=== PATIENT | male | born 1935 ===

== ENCOUNTER 2019-04-12 06:19 | Inpatient (IN) ==
[2019-04-12 08:28] LABS: ABG HCO3 22.8 MMOL/L (20-26); ABG Oxygen Saturation 99.8 % (95-100); ABG PH 7.393 (7.35-7.45)
[2019-04-12] MEDS ORDERED: NOREPINEPHRINE 8 MG in SODIUM CHLORIDE 0.9% 242 ML IV PRN (08:28)
[2019-04-12 08:29] LABS: Allen Test Positive; Pt O2 Delivery Device Ventilator
[2019-04-12 09:15] LABS: Basophils % 0.1 % (0.0-0.8); Hematocrit 37.1 VOL% (42.0-52.0); Hemoglobin 11.8 GM/DL (14.0-18.0); Immature Granulocytes % 0.7 %; Immature Granulocytes Absolute 0.09 #; Lymphocytes # 0.3 10*3/uL (1.4-4.0); Lymphocytes % 2.4 % (21.2-54.2); Mean Corpuscular HGB Conc 31.8 GM/DL (32-36); Mean Corpuscular Volume 98.1 FL (87-102); Mean Platelet Volume 11.7 FL (9.6-12.0); Monocytes % 2.7 % (1.7-12.7); Neutrophils % 94.1 % (38.7-73.9); Platelet Count 153 T/CUMM (130-400); Red Blood Count 3.78 MC/CUMM (3.8-5.5); Red Cell Distribution Width 13.2 % (9.3-17.3); White Blood Count 13.5 T/CUMM (4-12)
[2019-04-12] MEDS ORDERED: SODIUM CHLORIDE 0.9% 1,800 ML IV ONE (09:15)
[2019-04-12 09:20] LABS: Amorphous Crystals,Urine Occasional /HPF (Few); Apearance,Urine CLOUDY (Clear); Bilirubin,Urine Negative (Negative); Blood, Urine Moderate mg/dL (Negative); Glucose,Urine (UA) Negative (Negative); Ketones,Urine Negative (Negative); Nitrite,Urine Negative (Negative); Protein,Urine 30 MG/DL; RBC,Urine 56 /HPF (0-4); Squamous Epithelial Cell,Urine Occasional /HPF (0-10); Urine Color Yellow (Yellow); Urine Specific Gravity 1.008 (1.001-1.035); Urine Urobilinogen < 2.0 EU/DL (0.2-1.0); WBC,Urine 1 /HPF (0-6)
[2019-04-12 09:40] LABS: Band Neutrophils 7 % (0-10); Lymphocytes 4 % (20-55); Segmented Neutrophils 87 % (50-85); Total Cells Counted 100
[2019-04-12 09:41] LABS: Hypochromasia 1+; Ovalocytes Slight; Platelet Estimate Adequate
[2019-04-12 09:42] LABS: Bilirubin,Total 0.8 MG/DL (0.2-1.0); Total Protein 6.4 G/DL (6.4-8.3)
[2019-04-12] MEDS: PIPERACILLIN/TAZOBACTAM 3,375 MG in SODIUM CHLORIDE 0.9% 100 ML IV SCH ×2 (10:22→17:29)
[2019-04-12] MEDS: POTASSIUM CHLORIDE RIDER 10 MEQ in PREMIX 1 EACH IV PRN ×7 (10:22→19:16)
[2019-04-12] MEDS ORDERED: ENOXAPARIN 40 MG/0.4 ML SYRINGE SUBCUT SCH (11:00)
[2019-04-12] MEDS ORDERED: ACETAMINOPHEN 325 MG TABLET PO PRN (11:11)
[2019-04-12] MEDS ORDERED: ALBUTEROL 2.5 MG/3 ML NEB RESP TX PRN (11:11)
[2019-04-12] MEDS ORDERED: ONDANSETRON 4 MG/2 ML VIAL IV PRN (11:11)
[2019-04-12] MEDS: PANTOPRAZOLE 40 MG VIAL IV SCH (12:53)
[2019-04-12] MEDS: INSULIN REGULAR 100 UNIT/ML SUBCUT SCH ×2 (12:54→18:02)
[2019-04-12] MEDS: OSELTAMIVIR 6 MG/ML 60 ML/BOTTLE PO SCH ×2 (12:54→21:30)
[2019-04-12] MEDS: SKIN HEALING OINT (AQUAPHOR) 50 GM TUBE TOP PRN (14:11)
[2019-04-12] MEDS ORDERED: DEXTROSE 10% 250 ML BAG IV PRN (14:50)
[2019-04-12] MEDS ORDERED: GLUCAGON 1 MG VIAL IM PRN (14:50)
[2019-04-12] MEDS ORDERED: FUROSEMIDE 40 MG/4 ML VIAL IV ONE (15:35)
[2019-04-13] MEDS: INSULIN REGULAR 100 UNIT/ML SUBCUT SCH ×4 (01:51→18:51)
[2019-04-13] MEDS: PIPERACILLIN/TAZOBACTAM 3,375 MG in SODIUM CHLORIDE 0.9% 100 ML IV SCH ×3 (01:52→18:41)
[2019-04-13 04:43] LABS: ABG Base Excess -3.8 MMOL/L (-2.5-2.5); ABG HCO3 21.3 MMOL/L (20-26); ABG Oxygen Saturation 99.2 % (95-100); ABG PCO2 39.6 MM HG (35-48); ABG PH 7.344 (7.35-7.45); ABG TCO2 19.3 MMOL/L (23-27); Allen Test Positive; Pt O2 Delivery Device Ventilator
[2019-04-13 05:11] LABS: Basophils % 0.1 % (0.0-0.8); Hematocrit 36.5 VOL% (42.0-52.0); Hemoglobin 11.6 GM/DL (14.0-18.0); Immature Granulocytes % 0.7 %; Lymphocytes # 1.2 10*3/uL (1.4-4.0); Lymphocytes % 8.6 % (21.2-54.2); Mean Corpuscular HGB Conc 31.8 GM/DL (32-36); Mean Corpuscular Volume 96.6 FL (87-102); Mean Platelet Volume 12.4 FL (9.6-12.0); Monocytes % 2.5 % (1.7-12.7); Neutrophils % 88.1 % (38.7-73.9); Platelet Count 125 T/CUMM (130-400); Red Blood Count 3.78 MC/CUMM (3.8-5.5); Red Cell Distribution Width 13.9 % (9.3-17.3); White Blood Count 13.9 T/CUMM (4-12)
[2019-04-13 05:32] LABS: Albumin 2.4 G/DL (3.4-5.0); Bilirubin,Total 0.8 MG/DL (0.2-1.0); Calcium 8.6 MG/DL (8.5-10.1); Osmolality,Calculated 276.4 MOS/KG (273-304); Risk Ratio 1.78; Total Protein 5.4 G/DL (6.4-8.3); VLDL CHOLESTEROL 27.6 MG/DL
[2019-04-13 05:44] LABS: Prealbumin 6.2 MG/DL (20-40)
[2019-04-13] MEDS ORDERED: MORPHINE 4 MG/1 ML VIAL IV PRN (08:33)
[2019-04-13] MEDS ORDERED: FUROSEMIDE 40 MG/4 ML VIAL IV SCH (09:00)
[2019-04-13] MEDS ORDERED: INFLUENZA VIRUS VACCINE 0.5 ML SYRINGE IM ONE (09:00)
[2019-04-13] MEDS: ENOXAPARIN 30 MG/0.3 ML SYRINGE SUBCUT SCH (11:30)
[2019-04-13] MEDS: FUROSEMIDE 40 MG/4 ML VIAL IV SCH ×2 (11:30→15:24)
[2019-04-13] MEDS: PANTOPRAZOLE 40 MG VIAL IV SCH (11:33)
[2019-04-13] MEDS ORDERED: PIPERACILLIN/TAZOBACTAM 3,375 MG in SODIUM CHLORIDE 0.9% 100 ML IV SCH (13:00)
[2019-04-13] MEDS: ALBUTEROL/IPRATROPIUM 3 ML NEB RESP TX SCH ×2 (13:05→19:46)
[2019-04-13] MEDS: POTASSIUM CHLORIDE 20 MEQ/15 ML UDCUP PO SCH (13:27)
[2019-04-13] MEDS: ASPIRIN EC 81 MG TABLET PO SCH (15:20)
[2019-04-13] MEDS: OSELTAMIVIR 6 MG/ML 60 ML/BOTTLE PO SCH (20:22)
[2019-04-14] MEDS: INSULIN REGULAR 100 UNIT/ML SUBCUT SCH ×4 (00:03→19:08)
[2019-04-14] MEDS: ALBUTEROL/IPRATROPIUM 3 ML NEB RESP TX SCH ×4 (01:34→20:23)
[2019-04-14] MEDS: PIPERACILLIN/TAZOBACTAM 3,375 MG in SODIUM CHLORIDE 0.9% 100 ML IV SCH ×2 (02:59→16:25)
[2019-04-14 03:28] LABS: ABG Base Excess -0.4 MMOL/L (-2.5-2.5); ABG HCO3 24.1 MMOL/L (20-26); ABG Oxygen Saturation 97.4 % (95-100); ABG PCO2 34.2 MM HG (35-48); ABG PO2 88.8 MM HG (80-95); ABG TCO2 20.7 MMOL/L (23-27); Allen Test Positive; Pt O2 Delivery Device Ventilator
[2019-04-14 05:29] LABS: Hematocrit 34.2 VOL% (42.0-52.0); Hemoglobin 10.6 GM/DL (14.0-18.0); Immature Granulocytes % 0.5 %; Immature Granulocytes Absolute 0.04 #; Lymphocytes # 0.7 10*3/uL (1.4-4.0); Lymphocytes % 9.1 % (21.2-54.2); Mean Corpuscular Volume 96.9 FL (87-102); Mean Platelet Volume 12.4 FL (9.6-12.0); Monocytes % 3.3 % (1.7-12.7); Neutrophils % 87.1 % (38.7-73.9); Platelet Count 112 T/CUMM (130-400); Red Blood Count 3.53 MC/CUMM (3.8-5.5); White Blood Count 7.3 T/CUMM (4-12)
[2019-04-14 05:52] LABS: Band Neutrophils 2 % (0-10); Lymphocytes 5 % (20-55); Segmented Neutrophils 91 % (50-85); Total Cells Counted 100
[2019-04-14 05:53] LABS: Hypochromasia 1+; Ovalocytes Slight
[2019-04-14 06:01] LABS: Albumin 2.2 G/DL (3.4-5.0); Bilirubin,Total 1.7 MG/DL (0.2-1.0); Calcium 8.3 MG/DL (8.5-10.1); Osmolality,Calculated 290.7 MOS/KG (273-304); Total Protein 5.3 G/DL (6.4-8.3)
[2019-04-14] MEDS: ASPIRIN EC 81 MG TABLET PO SCH (09:01)
[2019-04-14] MEDS: FUROSEMIDE 40 MG/4 ML VIAL IV SCH ×2 (09:01→16:21)
[2019-04-14] MEDS: ENOXAPARIN 30 MG/0.3 ML SYRINGE SUBCUT SCH (10:16)
[2019-04-14] MEDS: PANTOPRAZOLE 40 MG VIAL IV SCH (10:52)
[2019-04-14] MEDS ORDERED: PIPERACILLIN/TAZOBACTAM 3,375 MG in SODIUM CHLORIDE 0.9% 100 ML IV SCH (15:00)
[2019-04-14] MEDS: SODIUM CHLORIDE 0.45% 1,000 ML IV SCH (19:19)
[2019-04-14] MEDS: OSELTAMIVIR 6 MG/ML 60 ML/BOTTLE PO SCH (21:27)
[2019-04-15] MEDS: ALBUTEROL/IPRATROPIUM 3 ML NEB RESP TX SCH ×4 (00:15→20:44)
[2019-04-15] MEDS: INSULIN REGULAR 100 UNIT/ML SUBCUT SCH ×4 (00:37→18:07)
[2019-04-15 03:23] LABS: ABG Base Excess 1.4 MMOL/L (-2.5-2.5); ABG HCO3 25.7 MMOL/L (20-26); ABG Oxygen Saturation 98.2 % (95-100); ABG PCO2 40.6 MM HG (35-48); ABG PH 7.415 (7.35-7.45); ABG TCO2 23.3 MMOL/L (23-27); Allen Test Positive; Pt O2 Delivery Device Ventilator
[2019-04-15] MEDS: PIPERACILLIN/TAZOBACTAM 3,375 MG in SODIUM CHLORIDE 0.9% 100 ML IV SCH ×2 (04:14→16:39)
[2019-04-15 05:37] LABS: Basophils % 0.2 % (0.0-0.8); Eosinophils % 0.2 % (0.00-10.9); Hematocrit 32.6 VOL% (42.0-52.0); Hemoglobin 10.6 GM/DL (14.0-18.0); Immature Granulocytes % 0.4 %; Immature Granulocytes Absolute 0.02 #; Lymphocytes # 0.7 10*3/uL (1.4-4.0); Lymphocytes % 13.2 % (21.2-54.2); Mean Corpuscular HGB Conc 32.5 GM/DL (32-36); Mean Platelet Volume 12.6 FL (9.6-12.0); Monocytes % 5.3 % (1.7-12.7); Neutrophils % 80.7 % (38.7-73.9); Platelet Count 101 T/CUMM (130-400); Red Blood Count 3.43 MC/CUMM (3.8-5.5); Red Cell Distribution Width 14.1 % (9.3-17.3); White Blood Count 4.9 T/CUMM (4-12)
[2019-04-15 05:48] LABS: Albumin 2.1 G/DL (3.4-5.0); Bilirubin,Total 0.7 MG/DL (0.2-1.0); Calcium 8.4 MG/DL (8.5-10.1); Osmolality,Calculated 293.5 MOS/KG (273-304); Total Protein 5.5 G/DL (6.4-8.3)
[2019-04-15] MEDS: FLUCONAZOLE 100 MG TABLET PO SCH (09:35)
[2019-04-15] MEDS: ASPIRIN EC 81 MG TABLET PO SCH (09:35)
[2019-04-15] MEDS: ASCORBIC ACID 500 MG TABLET PO SCH ×2 (13:50→22:45)
[2019-04-15] MEDS: ENOXAPARIN 30 MG/0.3 ML SYRINGE SUBCUT SCH (13:50)
[2019-04-15] MEDS: PANTOPRAZOLE 40 MG VIAL IV SCH (13:50)
[2019-04-15] MEDS: carvediloL 6.25 MG TABLET PO SCH ×2 (13:51→22:46)
[2019-04-15] MEDS: SODIUM CHLORIDE 0.45% 1,000 ML IV SCH (16:38)
[2019-04-15] MEDS: OSELTAMIVIR 6 MG/ML 60 ML/BOTTLE PO SCH (22:46)
[2019-04-16] MEDS: INSULIN REGULAR 100 UNIT/ML SUBCUT SCH ×4 (01:17→18:31)
[2019-04-16] MEDS: ALBUTEROL/IPRATROPIUM 3 ML NEB RESP TX SCH ×4 (01:53→20:14)
[2019-04-16] MEDS: PIPERACILLIN/TAZOBACTAM 3,375 MG in SODIUM CHLORIDE 0.9% 100 ML IV SCH ×2 (05:14→14:29)
[2019-04-16 05:37] LABS: Basophils % 0.2 % (0.0-0.8); Eosinophils % 0.5 % (0.00-10.9); Hematocrit 32.6 VOL% (42.0-52.0); Hemoglobin 10.4 GM/DL (14.0-18.0); Immature Granulocytes % 0.2 %; Immature Granulocytes Absolute 0.01 #; Lymphocytes # 0.8 10*3/uL (1.4-4.0); Lymphocytes % 18.2 % (21.2-54.2); Mean Corpuscular HGB Conc 31.9 GM/DL (32-36); Mean Corpuscular Volume 95.6 FL (87-102); Mean Platelet Volume 11.9 FL (9.6-12.0); Monocytes % 7.6 % (1.7-12.7); Neutrophils % 73.3 % (38.7-73.9); Platelet Count 118 T/CUMM (130-400); Red Blood Count 3.41 MC/CUMM (3.8-5.5); Red Cell Distribution Width 13.7 % (9.3-17.3); White Blood Count 4.4 T/CUMM (4-12)
[2019-04-16 05:55] LABS: Calcium 8.5 MG/DL (8.5-10.1); Osmolality,Calculated 289.3 MOS/KG (273-304)
[2019-04-16] MEDS: POTASSIUM CHLORIDE 20 MEQ/15 ML UDCUP PO SCH (08:07)
[2019-04-16] MEDS: FLUCONAZOLE 100 MG TABLET PO SCH (08:07)
[2019-04-16] MEDS: carvediloL 6.25 MG TABLET PO SCH ×2 (08:07→21:22)
[2019-04-16] MEDS: ASPIRIN EC 81 MG TABLET PO SCH (08:07)
[2019-04-16] MEDS: ASCORBIC ACID 500 MG TABLET PO SCH ×2 (08:08→21:22)
[2019-04-16] MEDS: ENOXAPARIN 30 MG/0.3 ML SYRINGE SUBCUT SCH (11:48)
[2019-04-16] MEDS: PANTOPRAZOLE 40 MG VIAL IV SCH (11:49)
[2019-04-16] MEDS: SODIUM CHLORIDE 0.45% 1,000 ML IV SCH (12:38)
[2019-04-16] MEDS: OSELTAMIVIR 6 MG/ML 60 ML/BOTTLE PO SCH (21:28)
[2019-04-17] MEDS: INSULIN REGULAR 100 UNIT/ML SUBCUT SCH ×4 (01:54→17:29)
[2019-04-17] MEDS: ALBUTEROL/IPRATROPIUM 3 ML NEB RESP TX SCH ×4 (02:42→20:03)
[2019-04-17] MEDS: PIPERACILLIN/TAZOBACTAM 3,375 MG in SODIUM CHLORIDE 0.9% 100 ML IV SCH ×2 (04:02→16:43)
[2019-04-17 04:32] LABS: Basophils % 0.2 % (0.0-0.8); Eosinophils % 0.7 % (0.00-10.9); Hematocrit 34.6 VOL% (42.0-52.0); Hemoglobin 11.1 GM/DL (14.0-18.0); Immature Granulocytes % 0.7 %; Immature Granulocytes Absolute 0.03 #; Lymphocytes % 24.1 % (21.2-54.2); Mean Corpuscular HGB Conc 32.1 GM/DL (32-36); Mean Corpuscular Volume 96.6 FL (87-102); Mean Platelet Volume 11.6 FL (9.6-12.0); Monocytes % 9.8 % (1.7-12.7); Neutrophils % 64.5 % (38.7-73.9); Platelet Count 129 T/CUMM (130-400); Red Blood Count 3.58 MC/CUMM (3.8-5.5); Red Cell Distribution Width 13.5 % (9.3-17.3); White Blood Count 4.3 T/CUMM (4-12)
[2019-04-17 04:53] LABS: Calcium 8.5 MG/DL (8.5-10.1); Osmolality,Calculated 288.1 MOS/KG (273-304)
[2019-04-17] MEDS: POTASSIUM CHLORIDE 20 MEQ/15 ML UDCUP PO SCH (06:05)
[2019-04-17] MEDS: SODIUM CHLORIDE 0.45% 1,000 ML IV SCH (06:22)
[2019-04-17] MEDS: ASCORBIC ACID 500 MG TABLET PO SCH ×2 (08:19→21:43)
[2019-04-17] MEDS: ASPIRIN EC 81 MG TABLET PO SCH (08:19)
[2019-04-17] MEDS: FLUCONAZOLE 100 MG TABLET PO SCH (08:20)
[2019-04-17] MEDS: carvediloL 6.25 MG TABLET PO SCH (08:20)
[2019-04-17] MEDS: ENOXAPARIN 30 MG/0.3 ML SYRINGE SUBCUT SCH (11:33)
[2019-04-17] MEDS: PANTOPRAZOLE 40 MG VIAL IV SCH (11:33)
[2019-04-17] MEDS: hydrALAZINE 10 MG TABLET PO SCH (21:43)
[2019-04-18] MEDS: ALBUTEROL/IPRATROPIUM 3 ML NEB RESP TX SCH ×4 (00:24→19:46)
[2019-04-18] MEDS: INSULIN REGULAR 100 UNIT/ML SUBCUT SCH ×4 (01:10→19:01)
[2019-04-18] MEDS: SODIUM CHLORIDE 0.45% 1,000 ML IV SCH ×3 (01:11→23:01)
[2019-04-18] MEDS: PIPERACILLIN/TAZOBACTAM 3,375 MG in SODIUM CHLORIDE 0.9% 100 ML IV SCH ×2 (03:20→14:03)
[2019-04-18 05:25] LABS: Basophils % 0.2 % (0.0-0.8); Eosinophils % 0.7 % (0.00-10.9); Hematocrit 36.4 VOL% (42.0-52.0); Hemoglobin 11.6 GM/DL (14.0-18.0); Immature Granulocytes Absolute 0.04 #; Lymphocytes # 0.9 10*3/uL (1.4-4.0); Lymphocytes % 22.3 % (21.2-54.2); Mean Corpuscular HGB Conc 31.9 GM/DL (32-36); Mean Corpuscular Volume 96.3 FL (87-102); Mean Platelet Volume 11.6 FL (9.6-12.0); Monocytes % 9.4 % (1.7-12.7); Neutrophils % 66.4 % (38.7-73.9); Platelet Count 172 T/CUMM (130-400); Red Blood Count 3.78 MC/CUMM (3.8-5.5); Red Cell Distribution Width 13.4 % (9.3-17.3)
[2019-04-18 06:06] LABS: Calcium 8.8 MG/DL (8.5-10.1); Osmolality,Calculated 284.3 MOS/KG (273-304)
[2019-04-18 06:10] LABS: Prealbumin 7.4 MG/DL (20-40)
[2019-04-18] MEDS: FLUCONAZOLE 100 MG TABLET PO SCH (08:21)
[2019-04-18] MEDS: ASCORBIC ACID 500 MG TABLET PO SCH ×2 (08:21→21:17)
[2019-04-18] MEDS: hydrALAZINE 10 MG TABLET PO SCH (08:21)
[2019-04-18] MEDS: PANTOPRAZOLE 40 MG TABLET PO SCH (08:21)
[2019-04-18] MEDS: ASPIRIN EC 81 MG TABLET PO SCH (08:22)
[2019-04-18 10:00] LABS: INR 0.9; PT Patient Result 10.2 SECS (9.6-12.2)
[2019-04-18] MEDS: ENOXAPARIN 40 MG/0.4 ML SYRINGE SUBCUT SCH (11:40)
[2019-04-18] MEDS: SPIRONOLACTONE 25 MG TABLET PO SCH (11:48)
[2019-04-19] MEDS: ALBUTEROL/IPRATROPIUM 3 ML NEB RESP TX SCH ×5 (00:51→19:21)
[2019-04-19] MEDS: INSULIN REGULAR 100 UNIT/ML SUBCUT SCH ×4 (02:16→19:30)
[2019-04-19] MEDS: PIPERACILLIN/TAZOBACTAM 3,375 MG in SODIUM CHLORIDE 0.9% 100 ML IV SCH ×2 (02:24→16:37)
[2019-04-19 05:31] LABS: Basophils % 0.3 % (0.0-0.8); Eosinophils # 0.1 10*3/uL (0.0-0.87); Eosinophils % 2.1 % (0.00-10.9); Hematocrit 34.2 VOL% (42.0-52.0); Hemoglobin 10.7 GM/DL (14.0-18.0); Immature Granulocytes % 0.9 %; Immature Granulocytes Absolute 0.03 #; Lymphocytes # 0.9 10*3/uL (1.4-4.0); Lymphocytes % 28.1 % (21.2-54.2); Mean Corpuscular HGB Conc 31.3 GM/DL (32-36); Mean Corpuscular Volume 96.9 FL (87-102); Mean Platelet Volume 10.6 FL (9.6-12.0); Monocytes % 12.2 % (1.7-12.7); Neutrophils % 56.4 % (38.7-73.9); Platelet Count 180 T/CUMM (130-400); Red Blood Count 3.53 MC/CUMM (3.8-5.5); Red Cell Distribution Width 13.3 % (9.3-17.3); White Blood Count 3.3 T/CUMM (4-12)
[2019-04-19 05:57] LABS: Eosinophils 6 % (0-10); Lymphocytes 26 % (20-55); Ovalocytes Slight; Platelet Estimate Adequate; Segmented Neutrophils 58 % (50-85); Total Cells Counted 100
[2019-04-19 06:01] LABS: Calcium 8.6 MG/DL (8.5-10.1)
[2019-04-19] MEDS: SPIRONOLACTONE 25 MG TABLET PO SCH (09:36)
[2019-04-19] MEDS: ASCORBIC ACID 500 MG TABLET PO SCH ×3 (09:37→23:32)
[2019-04-19] MEDS: ASPIRIN EC 81 MG TABLET PO SCH (09:37)
[2019-04-19] MEDS: PANTOPRAZOLE 40 MG TABLET PO SCH (09:38)
[2019-04-19] MEDS: FLUCONAZOLE 100 MG TABLET PO SCH (09:38)
[2019-04-19] MEDS: LOSARTAN 50 MG TABLET PO SCH (09:38)
[2019-04-19] MEDS: ENOXAPARIN 40 MG/0.4 ML SYRINGE SUBCUT SCH ×2 (09:39→10:31)
[2019-04-19] MEDS: POTASSIUM CHLORIDE 20 MEQ TABLET PO SCH ×3 (09:47→16:48)
[2019-04-20] MEDS: ALBUTEROL/IPRATROPIUM 3 ML NEB RESP TX SCH ×4 (00:21→20:04)
[2019-04-20] MEDS: INSULIN REGULAR 100 UNIT/ML SUBCUT SCH ×4 (01:10→17:05)
[2019-04-20] MEDS: PIPERACILLIN/TAZOBACTAM 3,375 MG in SODIUM CHLORIDE 0.9% 100 ML IV SCH ×2 (04:33→16:25)
[2019-04-20 05:18] LABS: Basophils % 0.2 % (0.0-0.8); Eosinophils # 0.1 10*3/uL (0.0-0.87); Eosinophils % 1.2 % (0.00-10.9); Hematocrit 34.6 VOL% (42.0-52.0); Immature Granulocytes Absolute 0.04 #; Lymphocytes # 0.8 10*3/uL (1.4-4.0); Lymphocytes % 18.6 % (21.2-54.2); Mean Corpuscular HGB Conc 31.8 GM/DL (32-36); Mean Corpuscular Volume 95.3 FL (87-102); Mean Platelet Volume 10.7 FL (9.6-12.0); Platelet Count 221 T/CUMM (130-400); Red Blood Count 3.63 MC/CUMM (3.8-5.5); Red Cell Distribution Width 13.2 % (9.3-17.3); White Blood Count 4.1 T/CUMM (4-12)
[2019-04-20 05:51] LABS: Calcium 8.9 MG/DL (8.5-10.1); Osmolality,Calculated 285.8 MOS/KG (273-304)
[2019-04-20] MEDS: ENOXAPARIN 40 MG/0.4 ML SYRINGE SUBCUT SCH (10:06)
[2019-04-20] MEDS: FLUCONAZOLE 100 MG TABLET PO SCH (10:06)
[2019-04-20] MEDS: LOSARTAN 50 MG TABLET PO SCH (10:06)
[2019-04-20] MEDS: SPIRONOLACTONE 25 MG TABLET PO SCH (10:06)
[2019-04-20] MEDS: ASPIRIN EC 81 MG TABLET PO SCH (10:06)
[2019-04-20] MEDS: PANTOPRAZOLE 40 MG TABLET PO SCH (10:06)
[2019-04-20] MEDS: ASCORBIC ACID 500 MG TABLET PO SCH ×2 (12:07→20:28)
[2019-04-20] MEDS: POTASSIUM CHLORIDE 20 MEQ/15 ML UDCUP PO SCH ×2 (16:24→20:28)
[2019-04-21] MEDS: INSULIN REGULAR 100 UNIT/ML SUBCUT SCH ×4 (00:29→17:11)
[2019-04-21] MEDS: ALBUTEROL/IPRATROPIUM 3 ML NEB RESP TX SCH ×4 (02:44→19:40)
[2019-04-21] MEDS: PIPERACILLIN/TAZOBACTAM 3,375 MG in SODIUM CHLORIDE 0.9% 100 ML IV SCH ×2 (03:36→14:40)
[2019-04-21] MEDS: POTASSIUM CHLORIDE 20 MEQ/15 ML UDCUP PO SCH (03:36)
[2019-04-21 05:17] LABS: Basophils % 0.3 % (0.0-0.8); Eosinophils # 0.1 10*3/uL (0.0-0.87); Eosinophils % 2.3 % (0.00-10.9); Hematocrit 34.9 VOL% (42.0-52.0); Hemoglobin 10.8 GM/DL (14.0-18.0); Immature Granulocytes % 0.8 %; Immature Granulocytes Absolute 0.03 #; Lymphocytes # 1.1 10*3/uL (1.4-4.0); Lymphocytes % 27.3 % (21.2-54.2); Mean Corpuscular HGB Conc 30.9 GM/DL (32-36); Mean Corpuscular Volume 97.8 FL (87-102); Mean Platelet Volume 10.8 FL (9.6-12.0); Monocytes % 10.4 % (1.7-12.7); Neutrophils % 58.9 % (38.7-73.9); Platelet Count 254 T/CUMM (130-400); Red Blood Count 3.57 MC/CUMM (3.8-5.5); Red Cell Distribution Width 13.5 % (9.3-17.3)
[2019-04-21 05:39] LABS: Calcium 8.7 MG/DL (8.5-10.1); Osmolality,Calculated 288.6 MOS/KG (273-304)
[2019-04-21] MEDS: SPIRONOLACTONE 25 MG TABLET PO SCH (09:09)
[2019-04-21] MEDS: ASPIRIN EC 81 MG TABLET PO SCH (09:09)
[2019-04-21] MEDS: FLUCONAZOLE 100 MG TABLET PO SCH (09:10)
[2019-04-21] MEDS: LOSARTAN 50 MG TABLET PO SCH (09:10)
[2019-04-21] MEDS: ASCORBIC ACID 500 MG TABLET PO SCH ×2 (09:10→20:45)
[2019-04-21] MEDS: PANTOPRAZOLE 40 MG TABLET PO SCH (09:10)
[2019-04-21] MEDS: ENOXAPARIN 40 MG/0.4 ML SYRINGE SUBCUT SCH (11:05)
[2019-04-21] MEDS ORDERED: LOSARTAN 50 MG TABLET PO ONE (13:30)
[2019-04-22] MEDS: INSULIN REGULAR 100 UNIT/ML SUBCUT SCH ×4 (01:09→18:03)
[2019-04-22] MEDS: ALBUTEROL/IPRATROPIUM 3 ML NEB RESP TX SCH ×4 (01:19→20:01)
[2019-04-22 06:18] LABS: Basophils % 0.2 % (0.0-0.8); Eosinophils # 0.1 10*3/uL (0.0-0.87); Eosinophils % 2.7 % (0.00-10.9); Hematocrit 34.4 VOL% (42.0-52.0); Hemoglobin 10.9 GM/DL (14.0-18.0); Immature Granulocytes % 0.4 %; Immature Granulocytes Absolute 0.02 #; Lymphocytes # 1.1 10*3/uL (1.4-4.0); Lymphocytes % 22.2 % (21.2-54.2); Mean Corpuscular HGB Conc 31.7 GM/DL (32-36); Mean Corpuscular Volume 96.4 FL (87-102); Mean Platelet Volume 10.4 FL (9.6-12.0); Monocytes % 8.9 % (1.7-12.7); Neutrophils % 65.6 % (38.7-73.9); Platelet Count 251 T/CUMM (130-400); Red Blood Count 3.57 MC/CUMM (3.8-5.5); White Blood Count 4.7 T/CUMM (4-12)
[2019-04-22 06:39] LABS: Osmolality,Calculated 289.6 MOS/KG (273-304)
[2019-04-22] MEDS: ASPIRIN EC 81 MG TABLET PO SCH (10:47)
[2019-04-22] MEDS: LOSARTAN 50 MG TABLET PO SCH (10:47)
[2019-04-22] MEDS: ASCORBIC ACID 500 MG TABLET PO SCH ×2 (10:48→22:58)
[2019-04-22] MEDS: PANTOPRAZOLE 40 MG TABLET PO SCH (10:48)
[2019-04-22] MEDS: FLUCONAZOLE 100 MG TABLET PO SCH (10:48)
[2019-04-22] MEDS: SPIRONOLACTONE 25 MG TABLET PO SCH (10:48)
[2019-04-22] MEDS: ENOXAPARIN 40 MG/0.4 ML SYRINGE SUBCUT SCH (10:49)
[2019-04-23] MEDS: INSULIN REGULAR 100 UNIT/ML SUBCUT SCH ×4 (00:29→17:02)
[2019-04-23] MEDS: ALBUTEROL/IPRATROPIUM 3 ML NEB RESP TX SCH ×4 (02:18→19:21)
[2019-04-23 06:20] LABS: Basophils % 0.3 % (0.0-0.8); Eosinophils # 0.2 10*3/uL (0.0-0.87); Hematocrit 34.2 VOL% (42.0-52.0); Hemoglobin 10.6 GM/DL (14.0-18.0); Immature Granulocytes % 0.7 %; Immature Granulocytes Absolute 0.04 #; Lymphocytes % 17.1 % (21.2-54.2); Mean Platelet Volume 10.8 FL (9.6-12.0); Monocytes % 7.6 % (1.7-12.7); Neutrophils % 71.3 % (38.7-73.9); Platelet Count 261 T/CUMM (130-400); Red Blood Count 3.49 MC/CUMM (3.8-5.5); Red Cell Distribution Width 13.9 % (9.3-17.3)
[2019-04-23 06:54] LABS: Albumin 2.5 G/DL (3.4-5.0); Bilirubin,Total 0.4 MG/DL (0.2-1.0); Calcium 9.3 MG/DL (8.5-10.1); Osmolality,Calculated 287.7 MOS/KG (273-304); Total Protein 5.9 G/DL (6.4-8.3)
[2019-04-23] MEDS: ASCORBIC ACID 500 MG TABLET PO SCH ×2 (10:25→21:26)
[2019-04-23] MEDS: ASPIRIN EC 81 MG TABLET PO SCH (10:25)
[2019-04-23] MEDS: LOSARTAN 50 MG TABLET PO SCH (10:25)
[2019-04-23] MEDS: SKIN HEALING OINT (AQUAPHOR) 50 GM TUBE TOP PRN (10:26)
[2019-04-23] MEDS: PANTOPRAZOLE 40 MG TABLET PO SCH (10:26)
[2019-04-23] MEDS: SPIRONOLACTONE 25 MG TABLET PO SCH (10:26)
[2019-04-23] MEDS: ENOXAPARIN 40 MG/0.4 ML SYRINGE SUBCUT SCH (10:32)
[2019-04-24] MEDS: ALBUTEROL/IPRATROPIUM 3 ML NEB RESP TX SCH ×4 (00:44→20:40)
[2019-04-24] MEDS: INSULIN REGULAR 100 UNIT/ML SUBCUT SCH ×4 (01:17→18:23)
[2019-04-24 06:34] LABS: Basophils % 0.3 % (0.0-0.8); Eosinophils # 0.2 10*3/uL (0.0-0.87); Eosinophils % 2.2 % (0.00-10.9); Hematocrit 32.8 VOL% (42.0-52.0); Hemoglobin 10.3 GM/DL (14.0-18.0); Immature Granulocytes % 0.6 %; Immature Granulocytes Absolute 0.04 #; Lymphocytes # 1.1 10*3/uL (1.4-4.0); Lymphocytes % 14.8 % (21.2-54.2); Mean Corpuscular HGB Conc 31.4 GM/DL (32-36); Mean Corpuscular Volume 96.5 FL (87-102); Mean Platelet Volume 11.1 FL (9.6-12.0); Monocytes % 6.4 % (1.7-12.7); Neutrophils % 75.7 % (38.7-73.9); Platelet Count 255 T/CUMM (130-400); White Blood Count 7.2 T/CUMM (4-12)
[2019-04-24 07:04] LABS: Albumin 2.5 G/DL (3.4-5.0); Bilirubin,Total 0.9 MG/DL (0.2-1.0); Osmolality,Calculated 287.8 MOS/KG (273-304); Total Protein 5.8 G/DL (6.4-8.3)
[2019-04-24] MEDS: ASCORBIC ACID 500 MG TABLET PO SCH ×2 (11:37→21:24)
[2019-04-24] MEDS: ENOXAPARIN 40 MG/0.4 ML SYRINGE SUBCUT SCH (11:37)
[2019-04-24] MEDS: PANTOPRAZOLE 40 MG TABLET PO SCH (11:38)
[2019-04-24] MEDS: ASPIRIN EC 81 MG TABLET PO SCH (11:38)
[2019-04-24] MEDS: SPIRONOLACTONE 25 MG TABLET PO SCH (11:38)
[2019-04-24] MEDS: LOSARTAN 50 MG TABLET PO SCH (11:39)
[2019-04-25] MEDS: INSULIN REGULAR 100 UNIT/ML SUBCUT SCH ×5 (00:28→22:02)
[2019-04-25] MEDS: ALBUTEROL/IPRATROPIUM 3 ML NEB RESP TX SCH ×4 (00:36→19:46)
[2019-04-25 05:39] LABS: Basophils % 0.1 % (0.0-0.8); Eosinophils # 0.1 10*3/uL (0.0-0.87); Eosinophils % 1.9 % (0.00-10.9); Hematocrit 33.2 VOL% (42.0-52.0); Hemoglobin 10.5 GM/DL (14.0-18.0); Immature Granulocytes % 0.4 %; Immature Granulocytes Absolute 0.03 #; Lymphocytes # 0.9 10*3/uL (1.4-4.0); Lymphocytes % 13.7 % (21.2-54.2); Mean Corpuscular HGB Conc 31.6 GM/DL (32-36); Mean Corpuscular Volume 98.2 FL (87-102); Neutrophils % 77.9 % (38.7-73.9); Platelet Count 238 T/CUMM (130-400); Red Blood Count 3.38 MC/CUMM (3.8-5.5); Red Cell Distribution Width 14.3 % (9.3-17.3); White Blood Count 6.8 T/CUMM (4-12)
[2019-04-25 06:11] LABS: Albumin 2.5 G/DL (3.4-5.0); Bilirubin,Total 0.4 MG/DL (0.2-1.0); Calcium 9.1 MG/DL (8.5-10.1); Osmolality,Calculated 291.7 MOS/KG (273-304)
[2019-04-25] MEDS: ASCORBIC ACID 500 MG TABLET PO SCH ×2 (09:10→22:02)
[2019-04-25] MEDS: LOSARTAN 50 MG TABLET PO SCH (09:10)
[2019-04-25] MEDS: PANTOPRAZOLE 40 MG TABLET PO SCH (09:11)
[2019-04-25] MEDS: SPIRONOLACTONE 25 MG TABLET PO SCH (09:11)
[2019-04-25] MEDS: ASPIRIN EC 81 MG TABLET PO SCH (09:11)
[2019-04-25] MEDS: ENOXAPARIN 40 MG/0.4 ML SYRINGE SUBCUT SCH (12:05)
[2019-04-26] MEDS: ALBUTEROL/IPRATROPIUM 3 ML NEB RESP TX SCH ×4 (00:32→19:00)
[2019-04-26 06:50] LABS: Basophils % 0.3 % (0.0-0.8); Eosinophils # 0.2 10*3/uL (0.0-0.87); Eosinophils % 2.7 % (0.00-10.9); Hematocrit 32.2 VOL% (42.0-52.0); Hemoglobin 9.9 GM/DL (14.0-18.0); Immature Granulocytes % 0.5 %; Immature Granulocytes Absolute 0.03 #; Lymphocytes % 15.5 % (21.2-54.2); Mean Corpuscular HGB Conc 30.7 GM/DL (32-36); Mean Corpuscular Volume 98.2 FL (87-102); Mean Platelet Volume 11.9 FL (9.6-12.0); Monocytes % 6.3 % (1.7-12.7); Neutrophils % 74.7 % (38.7-73.9); Platelet Count 235 T/CUMM (130-400); Red Blood Count 3.28 MC/CUMM (3.8-5.5); Red Cell Distribution Width 14.5 % (9.3-17.3); White Blood Count 6.3 T/CUMM (4-12)
[2019-04-26 07:14] LABS: Albumin 2.5 G/DL (3.4-5.0); Bilirubin,Total 0.8 MG/DL (0.2-1.0); Calcium 9.4 MG/DL (8.5-10.1); Osmolality,Calculated 291.7 MOS/KG (273-304); Total Protein 5.9 G/DL (6.4-8.3)
[2019-04-26] MEDS: INSULIN REGULAR 100 UNIT/ML SUBCUT SCH ×4 (08:55→20:05)
[2019-04-26] MEDS: PANTOPRAZOLE 40 MG TABLET PO SCH (09:28)
[2019-04-26] MEDS: LOSARTAN 50 MG TABLET PO SCH (09:28)
[2019-04-26] MEDS: SPIRONOLACTONE 25 MG TABLET PO SCH (09:28)
[2019-04-26] MEDS: ASPIRIN EC 81 MG TABLET PO SCH (09:29)
[2019-04-26] MEDS: ASCORBIC ACID 500 MG TABLET PO SCH ×2 (09:29→21:14)
[2019-04-26] MEDS ORDERED: TUBERCULIN SKIN TEST 0.1 ML SYRINGE INTRADERM ONE (10:38)
[2019-04-26] MEDS: ENOXAPARIN 40 MG/0.4 ML SYRINGE SUBCUT SCH (12:12)
[2019-04-27] MEDS: ALBUTEROL/IPRATROPIUM 3 ML NEB RESP TX SCH ×4 (00:20→19:29)
[2019-04-27] MEDS: INSULIN REGULAR 100 UNIT/ML SUBCUT SCH ×4 (09:03→21:57)
[2019-04-27] MEDS: PANTOPRAZOLE 40 MG TABLET PO SCH (09:50)
[2019-04-27] MEDS: LOSARTAN 50 MG TABLET PO SCH (09:50)
[2019-04-27] MEDS: ASCORBIC ACID 500 MG TABLET PO SCH ×2 (09:50→21:59)
[2019-04-27] MEDS: ASPIRIN EC 81 MG TABLET PO SCH (09:50)
[2019-04-27] MEDS: SPIRONOLACTONE 25 MG TABLET PO SCH (09:50)
[2019-04-27] MEDS: ENOXAPARIN 40 MG/0.4 ML SYRINGE SUBCUT SCH (10:14)
[2019-04-28] MEDS: ALBUTEROL/IPRATROPIUM 3 ML NEB RESP TX SCH ×4 (00:36→20:22)
[2019-04-28] MEDS: INSULIN REGULAR 100 UNIT/ML SUBCUT SCH ×4 (09:06→21:47)
[2019-04-28] MEDS: PANTOPRAZOLE 40 MG TABLET PO SCH (09:19)
[2019-04-28] MEDS: SPIRONOLACTONE 25 MG TABLET PO SCH (09:19)
[2019-04-28] MEDS: LOSARTAN 50 MG TABLET PO SCH (09:19)
[2019-04-28] MEDS: ASPIRIN EC 81 MG TABLET PO SCH (09:19)
[2019-04-28] MEDS: ASCORBIC ACID 500 MG TABLET PO SCH ×2 (09:20→21:43)
[2019-04-28] MEDS: ENOXAPARIN 40 MG/0.4 ML SYRINGE SUBCUT SCH (14:05)
[2019-04-29] MEDS: ALBUTEROL/IPRATROPIUM 3 ML NEB RESP TX SCH ×2 (02:13→08:02)
[2019-04-29 05:48] LABS: Basophils % 0.6 % (0.0-0.8); Eosinophils # 0.1 10*3/uL (0.0-0.87); Hematocrit 32.1 VOL% (42.0-52.0); Hemoglobin 10.2 GM/DL (14.0-18.0); Immature Granulocytes % 0.2 %; Immature Granulocytes Absolute 0.01 #; Lymphocytes # 1.2 10*3/uL (1.4-4.0); Lymphocytes % 22.8 % (21.2-54.2); Mean Corpuscular HGB Conc 31.8 GM/DL (32-36); Mean Corpuscular Volume 96.7 FL (87-102); Mean Platelet Volume 12.1 FL (9.6-12.0); Monocytes % 7.8 % (1.7-12.7); Neutrophils % 66.6 % (38.7-73.9); Platelet Count 216 T/CUMM (130-400); Red Blood Count 3.32 MC/CUMM (3.8-5.5); Red Cell Distribution Width 14.3 % (9.3-17.3); White Blood Count 5.4 T/CUMM (4-12)
[2019-04-29 06:28] LABS: Calcium 9.4 MG/DL (8.5-10.1); Osmolality,Calculated 289.8 MOS/KG (273-304)
[2019-04-29 07:35] VITALS: BP 162/75
[2019-04-29] MEDS: ASPIRIN EC 81 MG TABLET PO SCH (10:33)
[2019-04-29] MEDS: PANTOPRAZOLE 40 MG TABLET PO SCH (10:33)
[2019-04-29] MEDS: SPIRONOLACTONE 25 MG TABLET PO SCH (10:34)
[2019-04-29] MEDS: INSULIN REGULAR 100 UNIT/ML SUBCUT SCH ×2 (10:34→13:29)
[2019-04-29] MEDS: ASCORBIC ACID 500 MG TABLET PO SCH (10:34)
[2019-04-29] MEDS: LOSARTAN 50 MG TABLET PO SCH (10:34)
[2019-04-29] MEDS: ENOXAPARIN 40 MG/0.4 ML SYRINGE SUBCUT SCH (10:36)
== END 2019-04-29 13:50 | DRG 208 ==
LOC: N.ICU 08:00 → SUATTDRO 08:00 → N.5E 04-19 14:17
PROVIDERS: ADMIT Internal Medicine; ATTEND Internal Medicine

== ENCOUNTER 2019-07-12 16:08 | Inpatient (IN) ==
[2019-07-12] MEDS ORDERED: DEXTROSE 10% 250 ML BAG IV PRN (19:07)
[2019-07-12] MEDS ORDERED: GLUCAGON 1 MG VIAL IM PRN (19:07)
[2019-07-12] MEDS ORDERED: ACETAMINOPHEN 325 MG TABLET PO PRN (19:10)
[2019-07-12] MEDS: PIPERACILLIN/TAZOBACTAM 3,375 MG in SODIUM CHLORIDE 0.9% 100 ML IV SCH (20:34)
[2019-07-12] MEDS: ASCORBIC ACID 500 MG TABLET PO SCH (21:53)
[2019-07-12] MEDS: INSULIN REGULAR 100 UNIT/ML SUBCUT SCH (21:54)
[2019-07-12] MEDS ORDERED: ALBUTEROL/IPRATROPIUM 3 ML NEB RESP TX ONE (23:22)
[2019-07-13] MEDS: ALBUTEROL/IPRATROPIUM 3 ML NEB RESP TX SCH ×4 (02:00→19:17)
[2019-07-13] MEDS: PIPERACILLIN/TAZOBACTAM 3,375 MG in SODIUM CHLORIDE 0.9% 100 ML IV SCH ×3 (03:13→21:33)
[2019-07-13] MEDS: ASPIRIN EC 81 MG TABLET PO SCH (08:01)
[2019-07-13] MEDS: LOSARTAN 50 MG TABLET PO SCH (08:02)
[2019-07-13] MEDS: PANTOPRAZOLE 40 MG TABLET PO SCH (08:02)
[2019-07-13] MEDS: ASCORBIC ACID 500 MG TABLET PO SCH ×2 (08:02→22:26)
[2019-07-13] MEDS: INSULIN REGULAR 100 UNIT/ML SUBCUT SCH ×4 (08:31→22:45)
[2019-07-13 08:54] LABS: Basophils % 0.2 % (0.0-0.8); Eosinophils % 0.2 % (0.00-10.9); Hematocrit 33.6 VOL% (42.0-52.0); Hemoglobin 10.7 GM/DL (14.0-18.0); Immature Granulocytes % 0.8 %; Immature Granulocytes Absolute 0.13 #; Lymphocytes % 6.1 % (21.2-54.2); Mean Corpuscular HGB Conc 31.8 GM/DL (32-36); Mean Platelet Volume 10.6 FL (9.6-12.0); Monocytes % 4.9 % (1.7-12.7); Neutrophils % 87.8 % (38.7-73.9); Platelet Count 333 T/CUMM (130-400); Red Blood Count 3.43 MC/CUMM (3.8-5.5); Red Cell Distribution Width 13.1 % (9.3-17.3); White Blood Count 16.6 T/CUMM (4-12)
[2019-07-13] MEDS ORDERED: SPIRONOLACTONE 25 MG TABLET PO SCH (09:00)
[2019-07-13 09:11] LABS: Calcium 9.7 MG/DL (8.5-10.1); Osmolality,Calculated 272.4 MOS/KG (273-304)
[2019-07-13] MEDS: CLINDAMYCIN INJ 600 MG in PREMIX 1 EACH IV SCH ×3 (09:29→23:20)
[2019-07-13] MEDS ORDERED: MORPHINE 4 MG/1 ML VIAL IV PRN ×2 (10:33)
[2019-07-13] MEDS ORDERED: GLUCAGON 1 MG VIAL IM PRN (10:35)
[2019-07-13] MEDS ORDERED: DEXTROSE 50% 25 GM/50 ML VIAL IV PRN (10:35)
[2019-07-13] MEDS ORDERED: ACETAMINOPHEN 325 MG TABLET PO PRN (10:35)
[2019-07-13] MEDS ORDERED: BISACODYL 5 MG TABLET PO PRN (10:35)
[2019-07-13] MEDS ORDERED: ONDANSETRON 4 MG/2 ML VIAL IV PRN (10:35)
[2019-07-13] MEDS ORDERED: POTASSIUM CHLORIDE 20 MEQ TABLET PO ONE (11:50)
[2019-07-14] MEDS: ALBUTEROL/IPRATROPIUM 3 ML NEB RESP TX SCH ×4 (01:02→20:20)
[2019-07-14 04:36] LABS: Basophils % 0.2 % (0.0-0.8); Eosinophils % 0.3 % (0.00-10.9); Hematocrit 29.8 VOL% (42.0-52.0); Hemoglobin 9.2 GM/DL (14.0-18.0); Immature Granulocytes % 0.7 %; Immature Granulocytes Absolute 0.09 #; Lymphocytes # 0.9 10*3/uL (1.4-4.0); Lymphocytes % 6.6 % (21.2-54.2); Mean Corpuscular HGB Conc 30.9 GM/DL (32-36); Mean Corpuscular Volume 100.3 FL (87-102); Mean Platelet Volume 10.8 FL (9.6-12.0); Monocytes % 6.2 % (1.7-12.7); Platelet Count 301 T/CUMM (130-400); Red Blood Count 2.97 MC/CUMM (3.8-5.5); White Blood Count 13.4 T/CUMM (4-12)
[2019-07-14 05:21] LABS: Calcium 9.3 MG/DL (8.5-10.1); Osmolality,Calculated 277.8 MOS/KG (273-304)
[2019-07-14] MEDS: PIPERACILLIN/TAZOBACTAM 3,375 MG in SODIUM CHLORIDE 0.9% 100 ML IV SCH ×3 (05:42→22:00)
[2019-07-14] MEDS: CLINDAMYCIN INJ 600 MG in PREMIX 1 EACH IV SCH ×4 (05:42→23:52)
[2019-07-14] MEDS: INSULIN REGULAR 100 UNIT/ML SUBCUT SCH ×4 (08:41→23:49)
[2019-07-14] MEDS: SPIRONOLACTONE 50 MG TABLET PO SCH (09:58)
[2019-07-14] MEDS: PANTOPRAZOLE 40 MG TABLET PO SCH (09:59)
[2019-07-14] MEDS: LOSARTAN 50 MG TABLET PO SCH (09:59)
[2019-07-14] MEDS: ASCORBIC ACID 500 MG TABLET PO SCH ×2 (09:59→22:00)
[2019-07-14] MEDS: ASPIRIN EC 81 MG TABLET PO SCH (09:59)
[2019-07-14] MEDS ORDERED: LIDOCAINE 1% 20 ML VIAL ONE (11:33)
[2019-07-14] MEDS ORDERED: propofoL 200 MG/20 ML VIAL IV ONE (13:05)
[2019-07-14] MEDS ORDERED: SODIUM CHLORIDE 0.9% 100 ML IV ONE (13:06)
[2019-07-14] MEDS ORDERED: KETAMINE 500 MG/10 ML VIAL ONE (13:06)
[2019-07-14] MEDS ORDERED: fentaNYL 100 MCG/2 ML VIAL ONE (13:06)
[2019-07-14] MEDS ORDERED: ETOMIDATE 40 MG/20 ML VIAL IV ONE (13:06)
[2019-07-15] MEDS: ALBUTEROL/IPRATROPIUM 3 ML NEB RESP TX SCH ×2 (01:40→07:10)
[2019-07-15] MEDS: CLINDAMYCIN INJ 600 MG in PREMIX 1 EACH IV SCH (05:25)
[2019-07-15] MEDS: PIPERACILLIN/TAZOBACTAM 3,375 MG in SODIUM CHLORIDE 0.9% 100 ML IV SCH (05:25)
[2019-07-15] MEDS: INSULIN REGULAR 100 UNIT/ML SUBCUT SCH (08:53)
[2019-07-15 09:02] VITALS: BP 132/45
[2019-07-15] MEDS: SPIRONOLACTONE 50 MG TABLET PO SCH (09:10)
[2019-07-15] MEDS: PANTOPRAZOLE 40 MG TABLET PO SCH (09:10)
[2019-07-15] MEDS: ASCORBIC ACID 500 MG TABLET PO SCH (09:10)
[2019-07-15] MEDS: ASPIRIN EC 81 MG TABLET PO SCH (09:10)
[2019-07-15] MEDS: LOSARTAN 50 MG TABLET PO SCH (09:10)
== END 2019-07-15 12:05 | disposition home health service (06) | DRG 240 ==
LOC: N.3E 18:40
PROVIDERS: ADMIT Surgery; ATTEND Surgery